=== PATIENT | female | born 1995 | race Caucasian/White ===

== ENCOUNTER 2020-06-15 04:28 | Inpatient (IN) | payer OTHER ==
[~2020-06-15 04:28] MED LIST: AUBRA EQ-28 TA1 EACH PO; BENTYL10 MG PO; CARAFATE1 GM PO; METFORMIN HCL500 M1 PO; ONDANSETRON ODT4 MG PO; PEPCID AC20 MG PO; TESSALON PERLE100 M1 PO; ZOFRAN4 MG PO
[2020-06-15 08:03] LABS: BASOPHIL 0.2 % (0-2); EOSINOPHIL 2.4 % (0-5); HCT 42.5 % (37.0-47.0); HGB 13.2 g/dl (12.5-16.0); LYMPHOCYTE 9.8 % (15-48); MCH 29.6 pg (25.0-31.0); MCHC 31.1 g/dL (32.0-36.0); MCV 95.3 fL (78.0-100.0); MONOCYTE 7.3 % (0-12); MPV 9.5 fL (6.0-9.5); NRBC 0; PLT 287 K/uL (150-400); RBC 4.46 M/uL (4.20-5.40); RDW 13.2 % (11.5-14.0); WBC 11.8 K/uL (4.0-10.5)
[2020-06-15 08:37] LABS: PRO-BNP 18 pg/mL (<125)
[2020-06-15 09:13] LABS: ALBUMIN 3.4 g/dL (3.4-5.0); BILIRUBIN - TOTAL 0.2 mg/dL (0.2-1.0); BUN/CREAT RATIO (CALC) 20.3 RATIO; CREATININE 0.59 mg/dL (0.51-0.95); GLOBULIN (CALCULATION) 3.7 g/dL; POTASSIUM 3.4 mmol/L (3.5-5.1); TOTAL PROTEIN 7.1 g/dL (6.4-8.2)
[2020-06-15 09:14] LABS: C-REACTIVE PROTEIN 1.9 mg/dL (<=0.90)
--- NOTE | 2020-06-15 18:40 | NUR ---
INFORMED DR. MEJIA THAT PT HAS HIGH HR. ORDER TO PUT OXYGEN ON PATIENT..
--- NOTE | 2020-06-16 17:25 | NUR ---
PT. WILL D/C HOME WITH BOYFRIEND. NEEDS TBD.
[2020-06-17 07:07] LABS: BASOPHIL 0.2 % (0-2); EOSINOPHIL 0.6 % (0-5); HGB 12.4 g/dl (12.5-16.0); LYMPHOCYTE 21.1 % (15-48); MCH 29.8 pg (25.0-31.0); MCHC 31.8 g/dL (32.0-36.0); MCV 93.8 fL (78.0-100.0); MONOCYTE 7.2 % (0-12); MPV 9.3 fL (6.0-9.5); NEUTROPHIL 70.4 % (41-80); NRBC 0; PLT 314 K/uL (150-400); RBC 4.16 M/uL (4.20-5.40); RDW 13.5 % (11.5-14.0); WBC 12.5 K/uL (4.0-10.5)
[2020-06-17 07:43] LABS: ALBUMIN 3.2 g/dL (3.4-5.0); BILIRUBIN - TOTAL 0.4 mg/dL (0.2-1.0); BUN/CREAT RATIO (CALC) 24.5 RATIO; C-REACTIVE PROTEIN 1.7 mg/dL (<=0.90); CREATININE 0.49 mg/dL (0.51-0.95); GLOBULIN (CALCULATION) 4.2 g/dL; POTASSIUM 3.7 mmol/L (3.5-5.1); TOTAL PROTEIN 7.4 g/dL (6.4-8.2)
[2020-06-17] MEDS ORDERED: VENTOLIN HFA IN18 GM INH (15:19)
[2020-06-17] MEDS ORDERED: DECADRON6 MG PO (15:19)
== END 2020-06-17 16:51 | disposition home or self-care (01) | DRG 179 ==
LOC: FER 04:28 → FMS 10:23
PROVIDERS: Emergency Medicine Emergency Medical Services; ADMIT Internal Medicine
PROC: 8E0ZXY6 Isolation (ICD-10-PCS; principal; 2020-06-15)
PROC: XW033E5 Introduction of Remdesivir Anti-infective into Peripheral Vein, Percutaneous Approach, New Technology Group 5 (ICD-10-PCS; 2020-06-15)
PROC: 3E0333Z Introduction of Anti-inflammatory into Peripheral Vein, Percutaneous Approach (ICD-10-PCS; 2020-06-15)
DX: U07.1 COVID-19 (principal); R00.0 Tachycardia, unspecified; E28.2 Polycystic ovarian syndrome; J45.909 Unspecified asthma, uncomplicated; R09.02 Hypoxemia; Z79.84 Long term (current) use of oral hypoglycemic drugs
CPT/HCPCS: 36415; 36600; 71275; 80053; 82728; 82803; 83615; 83880; 84145; 84443; 84484; 85025; 85379; 86140; 93005; 94010; 94640; 94664; 94760; C9399; G0378; J1650; J2060; J2930; J7030; J7050; J8540; Q9967; U0002

== ENCOUNTER 2022-01-14 23:40 | Emergency (ER) | payer OTHER ==
[~2022-01-14 23:40] MED LIST changes: +DECADRON6 MG PO; +VENTOLIN HFA IN18 GM INH
[2022-01-15 01:26] LABS: INFLUENZA A NAA NEGATIVE (NEGATIVE)
[2022-01-15 01:27] LABS: CORONAVIRUS 2019 SARS-COV-2 POSITIVE (NEGATIVE)
[2022-01-15] MEDS ORDERED: PAXLOVID CO-PA1 EAC1 PO (01:43)
[2022-01-15] MEDS ORDERED: ONDANSETRON ODT4 MG PO (01:43)
== END 2022-01-15 01:59 | disposition home or self-care (01) ==
LOC: FER 23:40
PROVIDERS: Emergency Medicine
DX: U07.1 COVID-19 (principal); J45.909 Unspecified asthma, uncomplicated
CPT/HCPCS: J1885; J2405; J7030; U0002